=== PATIENT | female | born 1980 | race African-American/Black ===

== ENCOUNTER → 2020-07-16 | Emergency (ER) | payer MEDICAID ==
[~2020-07-16] VITALS: Ht 154.9 cm; Wt 66.2 kg
[2020-07-16 06:45] VITALS: BP 122/77
== END ==
LOC: ER 06:24
DX: T19.2XXA Foreign body in vulva and vagina, initial encounter (principal); X58.XXXA Exposure to other specified factors, initial encounter; Y93.89 Activity, other specified; Y92.89 Other specified places as the place of occurrence of the external cause; Y99.8 Other external cause status
CPT/HCPCS: 99284